=== PATIENT | female | born 1990 | race Caucasian/White ===

== ENCOUNTER → 2021-06-15 | Outpatient (CLI) | payer OTHER ==
[2021-06-15 14:12] LABS: BASO % 0.2 % (0.0-1.0); EOS # 0.1 10^3/uL (0.0-0.5); EOS % 1.3 % (0.0-3.0); HEMATOCRIT 39.6 % (36.0-47.0); HEMOGLOBIN 13.1 g/dl (12.0-15.5); LYMPH # 1.8 10^3/uL (1.5-5.0); LYMPH % 17.5 % (24.0-44.0); MEAN CORPUSCULAR HEMOGLOBIN 28.4 pg (27.0-33.0); MEAN CORPUSCULAR HGB CONC 33.1 g/dl (32.0-36.5); MEAN CORPUSCULAR VOLUME 85.7 fl (80.0-96.0); MONO # 0.5 10^3/uL (0.0-0.8); MONO % 4.5 % (2.0-8.0); NEUTROPHILS # 7.9 10^3/uL (1.5-8.5); PLATELET COUNT, AUTOMATED 216 10^3/uL (150-450); RED BLOOD COUNT 4.62 10^6/uL (4.00-5.40); WHITE BLOOD COUNT 10.4 10^3/uL (4.0-10.0)
[2021-06-15 15:28] LABS: HEPATITIS C VIRUS ABY INDEX < 0.0 INDEX (<0.8); HIV 1&2 SCREEN CENTAUR NEGATIVE (NEGATIVE)
[2021-06-15 15:50] LABS: GC DNA AMPLIFICATION NEGATIVE (NEGATIVE)
== END ==
LOC: M PLALAB 09:22
PROVIDERS: ATTEND Specialist
DX: O30.009 Twin pregnancy, unspecified number of placenta and unspecified number of amniotic sacs, unspecified trimester (principal); Z3A.00 Weeks of gestation of pregnancy not specified

== ENCOUNTER 2021-07-10 12:34 | Outpatient (CLI) | payer OTHER ==
[~2021-07-10] VITALS: Ht 149.9 cm; Wt 95.3 kg
[2021-07-10] MEDS ORDERED: STUACAP PO (12:51)
[2021-07-10] MEDS ORDERED: HOME MED LIST COMPLETE! XX SCH (12:55)
[2021-07-10] MEDS ORDERED: ONDANSETRON 4MG/2ML VIAL IV PRN (13:10)
[2021-07-10] MEDS ORDERED: LR 1,000 ML IV SCH (13:10)
[2021-07-10] MEDS ORDERED: LACTATED RINGER'S 1000 ML IV ONE (13:10)
[2021-07-10 14:18] LABS: HEMOGLOBIN 12.8 g/dl (12.0-15.5); MEAN CORPUSCULAR HEMOGLOBIN 28.8 pg (27.0-33.0); MEAN CORPUSCULAR HGB CONC 33.7 g/dl (32.0-36.5); MEAN CORPUSCULAR VOLUME 85.4 fl (80.0-96.0); PLATELET COUNT, AUTOMATED 209 10^3/uL (150-450); RED BLOOD COUNT 4.45 10^6/uL (4.00-5.40); WHITE BLOOD COUNT 12.6 10^3/uL (4.0-10.0)
[2021-07-10 14:41] VITALS: BP 117/69
[2021-07-10 14:44] LABS: ALBUMIN 2.7 GM/DL (3.2-5.2); ALT/SGPT 23 U/L (12-78); AMYLASE 35 U/L (25-115); BILIRUBIN,TOTAL 0.2 MG/DL (0.2-1.0); BLOOD UREA NITROGEN 5 MG/DL (7-18); CALCIUM LEVEL 8.7 MG/DL (8.5-10.1); CARBON DIOXIDE LEVEL 22 MEQ/L (21-32); CHLORIDE LEVEL 109 MEQ/L (98-107); CREATININE FOR GFR 0.47 MG/DL (0.55-1.30); GLOMERULAR FILTRATION RATE > 60.0 (>60); GLUCOSE, FASTING 93 MG/DL (70-100); LIPASE 71 U/L (73-393); POTASSIUM SERUM 4.1 MEQ/L (3.5-5.1); SODIUM LEVEL 139 MEQ/L (136-145); TOTAL PROTEIN 6.5 GM/DL (6.4-8.2)
[2021-07-10 15:29] LABS: RSV AMPLIFICATION NEGATIVE (NEGATIVE)
[2021-07-10 15:46] VITALS: BP 132/71
== END 2021-07-10 16:00 | disposition home or self-care (01) ==
LOC: M LDO 12:34
PROVIDERS: ATTEND Advanced Practice Midwife
DX: O26.892 Other specified pregnancy related conditions, second trimester (principal); O21.8 Other vomiting complicating pregnancy; R19.7 Diarrhea, unspecified; O34.219 Maternal care for unspecified type scar from previous cesarean delivery; O30.042 Twin pregnancy, dichorionic/diamniotic, second trimester; Z3A.19 19 weeks gestation of pregnancy
CPT/HCPCS: 36415; 76815; 80053; 82150; 83690; 85027; 87631; 96374; G0378; G0463; J2405

== ENCOUNTER → 2021-07-24 | Outpatient (CLI) | payer OTHER ==
[~2021-07-24] MED LIST: FERR325T81 PO; STUACAP PO
== END ==
LOC: M RAD 10:38
PROVIDERS: ATTEND Specialist
DX: O30.009 Twin pregnancy, unspecified number of placenta and unspecified number of amniotic sacs, unspecified trimester (principal); Z3A.21 21 weeks gestation of pregnancy

== ENCOUNTER → 2021-09-12 | Outpatient (CLI) | payer OTHER ==
[~2021-09-12] MED LIST changes: -FERR325T81 PO
== END ==
LOC: M WHC 12:58
PROVIDERS: ATTEND Specialist
DX: O30.042 Twin pregnancy, dichorionic/diamniotic, second trimester (principal); Z3A.28 28 weeks gestation of pregnancy

== ENCOUNTER → 2021-09-18 | Outpatient (CLI) | payer OTHER ==
[2021-09-18 15:13] LABS: HEMATOCRIT 39.8 % (36.0-47.0); HEMOGLOBIN 12.9 g/dl (12.0-15.5); MEAN CORPUSCULAR HEMOGLOBIN 27.2 pg (27.0-33.0); MEAN CORPUSCULAR HGB CONC 32.4 g/dl (32.0-36.5); PLATELET COUNT, AUTOMATED 192 10^3/uL (150-450); RED BLOOD COUNT 4.74 10^6/uL (4.00-5.40); WHITE BLOOD COUNT 10.8 10^3/uL (4.0-10.0)
== END ==
LOC: M PLALAB 11:38
PROVIDERS: ATTEND Specialist
DX: O30.042 Twin pregnancy, dichorionic/diamniotic, second trimester (principal)

== ENCOUNTER 2021-10-03 00:38 | Outpatient (CLI) | payer OTHER ==
[2021-10-03] VITALS (11 sets, daily range): BP systolic 115–166; BP diastolic 57–86
[~2021-10-03] VITALS: Ht 149.9 cm; Wt 100.9 kg
[2021-10-03] MEDS ORDERED: LACTATED RINGER'S 1000 ML IV STA (01:31)
[2021-10-03] MEDS: LR 1,000 ML IV SCH ×2 (02:53→10:46)
[2021-10-03] MEDS ORDERED: BETAMETHASONE SOLUSPAN 6MG/ML 5ML VIAL (J0702 PER 3MG) IM ONE (07:00)
[2021-10-03] MEDS ORDERED: INDOMETHACIN 25 MG CAP PO ONE (08:00)
[2021-10-04] MEDS ORDERED: FERR325T81 PO (08:20)
== END 2021-10-03 13:55 | disposition home or self-care (01) ==
LOC: M LDO 00:38
PROVIDERS: ATTEND Specialist
DX: O60.03 Preterm labor without delivery, third trimester (principal); O26.893 Other specified pregnancy related conditions, third trimester; O26.853 Spotting complicating pregnancy, third trimester; R10.30 Lower abdominal pain, unspecified; O30.043 Twin pregnancy, dichorionic/diamniotic, third trimester; Z3A.31 31 weeks gestation of pregnancy
CPT/HCPCS: 59025; 76816; 76820; 96360; 96361; 96372; G0378; G0463; J0702

== ENCOUNTER 2021-10-04 08:05 | Outpatient (CLI) | payer OTHER ==
[~2021-10-04] VITALS: Ht 149.9 cm; Wt 101.8 kg
[2021-10-04] MEDS ORDERED: BETAMETHASONE SOLUSPAN 6MG/ML 5ML VIAL (J0702 PER 3MG) IM ONE (08:20)
[2021-10-04] MEDS ORDERED: FERR325T81 PO (08:20)
[2021-10-04] MEDS ORDERED: HOME MED LIST COMPLETE! XX SCH (08:20)
[2021-10-04 08:36] VITALS: BP 137/70
[2021-10-04 08:58] VITALS: BP 127/76
== END 2021-10-04 09:00 | disposition home or self-care (01) ==
LOC: M LDO 08:05
PROVIDERS: ATTEND Obstetrics & Gynecology
DX: O60.03 Preterm labor without delivery, third trimester (principal); O30.043 Twin pregnancy, dichorionic/diamniotic, third trimester; O34.219 Maternal care for unspecified type scar from previous cesarean delivery; Z3A.31 31 weeks gestation of pregnancy
CPT/HCPCS: 96372; G0378; J0702

== ENCOUNTER 2021-10-06 17:46 | Outpatient (CLI) | payer OTHER ==
[~2021-10-06] VITALS: Ht 149.9 cm; Wt 102.3 kg
[~2021-10-06 17:46] MED LIST changes: +FERR325T81 PO
[2021-10-06 18:04] VITALS: BP 131/71
== END 2021-10-06 19:06 | disposition home or self-care (01) ==
LOC: M LDO 17:46
PROVIDERS: ATTEND Obstetrics & Gynecology
DX: O60.03 Preterm labor without delivery, third trimester (principal); O26.893 Other specified pregnancy related conditions, third trimester; R10.2 Pelvic and perineal pain; O34.219 Maternal care for unspecified type scar from previous cesarean delivery; O30.043 Twin pregnancy, dichorionic/diamniotic, third trimester; O09.819 Supervision of pregnancy resulting from assisted reproductive technology, unspecified trimester; Z3A.32 32 weeks gestation of pregnancy
CPT/HCPCS: 59025; 76815; G0378; G0463

== ENCOUNTER 2021-10-07 13:44 | Inpatient (IN) | payer OTHER ==
[~2021-10-07] VITALS: Ht 149.9 cm; Wt 101.2 kg
[2021-10-07] VITALS (16 sets, daily range): BP systolic 111–203; BP diastolic 54–112
[2021-10-07] MEDS ORDERED: HOME MED LIST COMPLETE! XX SCH (14:10)
[2021-10-07] MEDS ORDERED: TERBUTALINE SULFATE 1 MG/ML VIAL (J3105) SC STA (15:43)
[2021-10-07 16:15] LABS: HEMATOCRIT 39.3 % (36.0-47.0); HEMOGLOBIN 12.9 g/dl (12.0-15.5); MEAN CORPUSCULAR HEMOGLOBIN 26.4 pg (27.0-33.0); MEAN CORPUSCULAR HGB CONC 32.8 g/dl (32.0-36.5); MEAN CORPUSCULAR VOLUME 80.4 fl (80.0-96.0); PLATELET COUNT, AUTOMATED 205 10^3/uL (150-450); RED BLOOD COUNT 4.89 10^6/uL (4.00-5.40); WHITE BLOOD COUNT 14.3 10^3/uL (4.0-10.0)
[2021-10-07] MEDS: BUTORPHANOL 2 MG/ML INJ (J0595) IV PRN ×3 (16:20→22:41)
[2021-10-07] MEDS: PROMETHAZINE INJ 25 MG/ML VIAL (J2550) IV PRN ×2 (16:20→22:40)
[2021-10-07 16:29] LABS: INR 0.86; PROTHROMBIN TIME 12.1 SECONDS (12.7-14.5)
[2021-10-07 16:30] LABS: PARTIAL THROMBOPLASTIN TIME 27.9 SECONDS (25.9-37.0)
[2021-10-07 16:41] LABS: ALBUMIN 2.4 GM/DL (3.2-5.2); ALT/SGPT 21 U/L (12-78); BILIRUBIN,TOTAL 0.2 MG/DL (0.2-1.0); BLOOD UREA NITROGEN 7 MG/DL (7-18); CALCIUM LEVEL 8.5 MG/DL (8.5-10.1); CARBON DIOXIDE LEVEL 21 MEQ/L (21-32); CHLORIDE LEVEL 106 MEQ/L (98-107); CREATININE FOR GFR 0.56 MG/DL (0.55-1.30); GLOMERULAR FILTRATION RATE > 60.0 (>60); GLUCOSE, FASTING 100 MG/DL (70-100); LDH LACTATE DEHYDROGENASE 158 U/L (84-246); POTASSIUM SERUM 3.8 MEQ/L (3.5-5.1); SODIUM LEVEL 135 MEQ/L (136-145); TOTAL PROTEIN 7.2 GM/DL (6.4-8.2); URIC ACID 2.9 MG/DL (2.6-6.0)
[2021-10-07 17:24] LABS: CREATININE,RANDOM URINE 36.4 MG/DL; TOTAL PROTEIN,RANDOM URINE 11.6 MG/DL (0.0-12.0)
[2021-10-07 20:20] LABS: BILIRUBIN, URINE MANUAL NEGATIVE (NEGATIVE); GLUCOSE, URINE (UA) MANUAL NEGATIVE (NEGATIVE); KETONE, URINE MANUAL NEGATIVE (NEGATIVE); RBC, URINE 0-1 /hpf (0-3); SQUAMOUS EPITHELIAL CELL URINE SMALL AMOUNT /hpf (SMALL AMT); UROBILINOGEN, URINE MANUAL NORMAL (NORMAL)
[2021-10-07 20:21] LABS: BACTERIA, URINE SMALL AMOUNT; HYALINE CAST, URINE NONE SEEN /lpf (0-1)
[2021-10-08] VITALS (21 sets, daily range): BP systolic 113–143; BP diastolic 55–88
[2021-10-08] MEDS: BUTORPHANOL 2 MG/ML INJ (J0595) IV PRN ×6 (02:31→23:19)
[2021-10-08] MEDS ORDERED: TERBUTALINE SULFATE 1 MG/ML VIAL (J3105) SC STA (03:02)
[2021-10-08] MEDS ORDERED: LR 1,000 ML IV SCH (06:50)
[2021-10-08] MEDS: NIFEdipine 10 MG CAP PO SCH ×2 (11:28→18:46)
[2021-10-08] MEDS: PROMETHAZINE INJ 25 MG/ML VIAL (J2550) IV PRN (23:17)
[2021-10-09] VITALS (14 sets, daily range): BP systolic 116–163; BP diastolic 57–106
[2021-10-09] MEDS: BUTORPHANOL 2 MG/ML INJ (J0595) IV PRN ×2 (01:21→03:23)
[2021-10-09] MEDS: NIFEdipine 10 MG CAP PO SCH (03:18)
[2021-10-09] MEDS ORDERED: LACTATED RINGER'S 1000 ML IV STA (04:38)
[2021-10-09] MEDS ORDERED: ceFAZolin SOD 3 GM IV Place Holder IV ONE (04:40)
[2021-10-09] MEDS ORDERED: METHYLERGONOVINE MALEATE 0.2 MG/ML VIAL (J2210) IM ONE (04:55)
[2021-10-09] MEDS ORDERED: CARBOPROST TROMETHAMINE 250 MCG/ML AMP IM ONE (04:55)
[2021-10-09] MEDS ORDERED: TRANEXAMIC ACID INJection 1,000 MG in NS 100 ML IV ONE (04:55)
[2021-10-09] MEDS ORDERED: AZITHROMYCIN INJ 500 MG, VIAL MATE ADAPTER 1 EACH in NS 250 ML IV ONE (05:00)
[2021-10-09] MEDS ORDERED: ceFAZolin SOD 2 GM in IV 1 EA IV ONE (05:00)
[2021-10-09] MEDS ORDERED: ceFAZolin SOD 1 GM in D5W MINI-BAG PLUS 50 ML IV ONE (05:00)
[2021-10-09] MEDS ORDERED: BICITRA 30ML SOLN UDC PO ONE (05:00)
[2021-10-09] MEDS ORDERED: NALOXONE INJ 0.4MG/1ML VIAL (J2310 PER 1MG) IV PRN ×2 (05:15)
[2021-10-09] MEDS ORDERED: METOCLOPRAMIDE INJ 10MG/2ML VIAL (J2765 PER 1) IV PRN (05:15)
[2021-10-09] MEDS ORDERED: NALBUPHINE HCL 10 MG/ML AMP (J2300) IV PRN (05:15)
[2021-10-09] MEDS ORDERED: ONDANSETRON 4MG/2ML VIAL IV PRN ×3 (05:15→07:10)
[2021-10-09] MEDS ORDERED: diphenhydrAMINE 50MG/ML VIAL (J1200) IV PRN (05:15)
[2021-10-09] MEDS ORDERED: ONDANSETRON 4MG/2ML VIAL As Ordered ONE (05:33)
[2021-10-09] MEDS ORDERED: OXYTOCIN INJ 10 UNITS/ML VIAL (J2590) As Ordered ONE (05:33)
[2021-10-09] MEDS ORDERED: MORPHINE PRES-FREE INJ 10 MG/10 ML VIAL (J2274) As Ordered ONE (05:33)
[2021-10-09] MEDS ORDERED: PHENYLephrine 500MCG 5ML (100MCG/ML) SYRINGE As Ordered ONE (05:36)
[2021-10-09 06:14] LABS: CORD GAS ABE V -4.6; CORD GAS HCO3 V 22.9 MEQ/L; CORD GAS O2 SAT V 63.8 %; CORD GAS PCO2 V 51.7 mmHg; CORD GAS PH V 7.265 UNITS; CORD GAS PO2 V 28.3 mmHg; CORD GAS SBC V 19.9 MEQ/L; CORD GAS TCO2 V 24.5 MEQ/L
[2021-10-09 06:16] LABS: CORD GAS ABE A -5.2; CORD GAS HCO3 A 24.7 MEQ/L; CORD GAS O2 SAT A 55.9 %; CORD GAS PCO2 A 67.7 mmHg; CORD GAS PH A 7.18 UNITS; CORD GAS PO2 A 27.9 mmHg; CORD GAS SBC A 19.3 MEQ/L; CORD GAS TCO2 A 26.8 MEQ/L
[2021-10-09 06:18] LABS: CORD GAS ABE A -1.8; CORD GAS HCO3 A 26.9 MEQ/L; CORD GAS PCO2 A 61.4 mmHg; CORD GAS PH A 7.259 UNITS; CORD GAS PO2 A 20.3 mmHg; CORD GAS SBC A 21.5 MEQ/L; CORD GAS TCO2 A 28.8 MEQ/L
[2021-10-09 06:20] LABS: CORD GAS ABE V -2.6; CORD GAS HCO3 V 25.2 MEQ/L; CORD GAS O2 SAT V 67.4 %; CORD GAS PCO2 V 54.9 mmHg; CORD GAS PH V 7.28 UNITS; CORD GAS PO2 V 28.7 mmHg; CORD GAS SBC V 21.5 MEQ/L; CORD GAS TCO2 V 26.9 MEQ/L
[2021-10-09] MEDS ORDERED: OXYTOCIN DRIP 30 UNITS in IV 1 EA IV SCH (06:40)
[2021-10-09] MEDS ORDERED: MORPHINE 4 MG/ML 1ML VIAL/SYRINGE (J2270) IV PRN (06:40)
[2021-10-09] MEDS ORDERED: MEASLES,MUMPS,RUBELLA VACCINE INJ (MMR-II) (90707) SC SCH (06:40)
[2021-10-09] MEDS ORDERED: PERCOCET 5MG/325MG TAB PO PRN ×3 (06:40→07:10)
[2021-10-09] MEDS ORDERED: RHOGAM 300 MCG (1500 IU) INJ (J2790) IM SCH (06:40)
[2021-10-09] MEDS ORDERED: SIMETHICONE 80MG CHEW TAB PO PRN (06:40)
[2021-10-09] MEDS ORDERED: IBUP80TA PO (06:56)
[2021-10-09] MEDS ORDERED: PERCOCET PO (06:56)
[2021-10-09] MEDS ORDERED: COLA100C5 PO (06:56)
[2021-10-09] MEDS ORDERED: fentaNYL 100 MCG/2 ML INJECTION IV PRN (07:10)
[2021-10-09] MEDS ORDERED: LR 1,000 ML IV SCH (07:10)
[2021-10-09] MEDS ORDERED: KETOROLAC 30 MG/ML 1ML VIAL IV PRN ×2 (07:10→07:50)
[2021-10-09] MEDS ORDERED: KETOROLAC 30 MG/ML 1ML VIAL As Ordered ONE (07:22)
[2021-10-09] MEDS: DOCUSATE SODIUM 100MG CAPSULE PO SCH ×3 (09:00→22:05)
[2021-10-09] MEDS: PRENATAL VITAMINS CHEWABLE TABLET PO SCH (09:00)
[2021-10-09] MEDS ORDERED: KETOROLAC 30 MG/ML 1ML VIAL IV SCH (13:00)
[2021-10-09] MEDS: ENOXAPARIN 40MG/0.4ML SYRINGE (J1650 PER 10MG) SC SCH (13:36)
[2021-10-09] MEDS: IBUPROFEN 800 MG TAB PO SCH ×2 (14:45→22:56)
[2021-10-10 02:00] VITALS: BP 102/57
[2021-10-10 06:00] VITALS: BP 130/78
[2021-10-10] MEDS: IBUPROFEN 800 MG TAB PO SCH ×3 (06:46→23:19)
[2021-10-10 07:10] LABS: HEMATOCRIT 34.1 % (36.0-47.0); HEMOGLOBIN 10.9 g/dl (12.0-15.5); MEAN CORPUSCULAR HEMOGLOBIN 26.7 pg (27.0-33.0); MEAN CORPUSCULAR VOLUME 83.4 fl (80.0-96.0); PLATELET COUNT, AUTOMATED 203 10^3/uL (150-450); RED BLOOD COUNT 4.09 10^6/uL (4.00-5.40); WHITE BLOOD COUNT 12.6 10^3/uL (4.0-10.0)
[2021-10-10] MEDS: DOCUSATE SODIUM 100MG CAPSULE PO SCH ×2 (08:00→21:42)
[2021-10-10] MEDS: ENOXAPARIN 40MG/0.4ML SYRINGE (J1650 PER 10MG) SC SCH (08:00)
[2021-10-10] MEDS: PRENATAL VITAMINS CHEWABLE TABLET PO SCH (09:00)
[2021-10-10 10:00] VITALS: BP 124/84
[2021-10-10] MEDS ORDERED: oxyCODONE 5MG TAB PO PRN (13:30)
[2021-10-10 14:00] VITALS: BP 138/82
[2021-10-10] MEDS: ACETAMINOPHEN 500 MG TAB PO PRN ×2 (14:06→21:43)
[2021-10-10 18:00] VITALS: BP 134/75
[2021-10-10 22:15] VITALS: BP 127/70
[2021-10-11 02:45] VITALS: BP 125/62
[2021-10-11 05:26] VITALS: BP 138/75
[2021-10-11] MEDS: IBUPROFEN 800 MG TAB PO SCH (06:51)
[2021-10-11 10:31] VITALS: BP 130/80
[2021-10-11] MEDS: PRENATAL VITAMINS CHEWABLE TABLET PO SCH (10:38)
[2021-10-11] MEDS: DOCUSATE SODIUM 100MG CAPSULE PO SCH (10:38)
[2021-10-11] MEDS: ACETAMINOPHEN 500 MG TAB PO PRN (10:39)
[2021-10-11] MEDS: ENOXAPARIN 40MG/0.4ML SYRINGE (J1650 PER 10MG) SC SCH (10:40)
== END 2021-10-11 13:40 | disposition home or self-care (01) | DRG 773 ==
LOC: M LDO 13:44 → M LDI 10-09 04:26 → M OBS 10-09 07:55
PROVIDERS: ADMIT Obstetrics & Gynecology; ATTEND Obstetrics & Gynecology
PROC: 10D00Z1 Extraction of Products of Conception, Low, Open Approach (ICD-10-PCS; principal; 2021-10-09 05:30)
DX: O60.14X0 Preterm labor third trimester with preterm delivery third trimester, not applicable or unspecified (principal); Z37.2 Twins, both liveborn; O34.211 Maternal care for low transverse scar from previous cesarean delivery; O30.043 Twin pregnancy, dichorionic/diamniotic, third trimester; Z88.0 Allergy status to penicillin; O32.1XX0 Maternal care for breech presentation, not applicable or unspecified; Z3A.32 32 weeks gestation of pregnancy

== ENCOUNTER 2022-12-20 15:22 | Emergency (ER) | payer OTHER ==
[~2022-12-20] VITALS: Ht 149.9 cm; Wt 94.0 kg
[~2022-12-20 15:22] MED LIST changes: +COLA100C5 PO; +IBUP80TA PO; +PERCOCET PO
[2022-12-20 16:48] LABS: URINE PREG TEST NEGATIVE (NEGATIVE)
[2022-12-20 16:55] LABS: BASO # 0.1 10^3/uL (0.0-0.2); BASO % 0.4 % (0.0-1.0); EOS # 0.1 10^3/uL (0.0-0.5); EOS % 0.6 % (0.0-3.0); HEMATOCRIT 43.3 % (36.0-47.0); HEMOGLOBIN 14.3 g/dl (12.0-15.5); LYMPH # 1.4 10^3/uL (1.5-5.0); LYMPH % 10.8 % (24.0-44.0); MEAN CORPUSCULAR HEMOGLOBIN 28.7 pg (27.0-33.0); MEAN CORPUSCULAR VOLUME 86.8 fl (80.0-96.0); MONO # 0.9 10^3/uL (0.0-0.8); MONO % 6.8 % (2.0-8.0); NEUTROPHILS # 10.6 10^3/uL (1.5-8.5); PLATELET COUNT, AUTOMATED 240 10^3/uL (150-450); RED BLOOD COUNT 4.99 10^6/uL (4.00-5.40); WHITE BLOOD COUNT 13.3 10^3/uL (4.0-10.0)
[2022-12-20 17:19] LABS: ALBUMIN 3.9 G/DL (3.2-5.2); ALKALINE PHOSPHATASE 160 U/L (46-116); ALT/SGPT 88 U/L (7.0-40); AST/SGOT 74 U/L (<34); BILIRUBIN,DIRECT 0.3 MG/DL (<0.4); BILIRUBIN,TOTAL 0.9 MG/DL (0.3-1.2); BLOOD UREA NITROGEN 7 MG/DL (9-23); CARBON DIOXIDE LEVEL 29 MMOL/L (20-31); CHLORIDE LEVEL 101 MMOL/L (98-107); CREATININE FOR GFR 0.68 MG/DL (0.55-1.30); GLOMERULAR FILTRATION RATE > 60.0 (>60); GLUCOSE, FASTING 93 MG/DL (60-100); POTASSIUM SERUM 4.4 MMOL/L (3.5-5.1); SODIUM LEVEL 137 MMOL/L (136-145); TOTAL PROTEIN 7.6 G/DL (5.7-8.2)
[2022-12-20] MEDS ORDERED: NS 1,000 ML IV ONE (18:35)
[2022-12-20] MEDS ORDERED: ONDANSETRON 4MG 2ML VIAL IV ONE (18:35)
[2022-12-20] MEDS ORDERED: KETOROLAC 30 MG/ML 1ML VIAL IV ONE (18:35)
[2022-12-20] MEDS ORDERED: ISOVUE-370 76% 100ML VIAL As Ordered ONE (18:36)
[2022-12-20] MEDS ORDERED: cefTRIAXone SOD 1 GM in D5W MINI-BAG PLUS 50 ML IV ONE (21:20)
[2022-12-20] MEDS ORDERED: CIPR500T39 PO (22:16)
[2022-12-20 22:21] VITALS: BP 120/73
[2022-12-20] MEDS ORDERED: ONDA4TAB6 PO (22:31)
== END 2022-12-20 22:38 | disposition home or self-care (01) ==
LOC: M ED 15:22
DX: N10 Acute pyelonephritis (principal); Z88.0 Allergy status to penicillin; Z79.83 Long term (current) use of bisphosphonates; Z79.899 Other long term (current) drug therapy
CPT/HCPCS: 74177; 80048; 80076; 81001; 83605; 84703; 85025; 87040; 87088; 87186; 96365; 96375; 99284; J0696; J1885; J2405; Q9967

== ENCOUNTER 2022-12-23 15:05 | Emergency (ER) | payer OTHER ==
[~2022-12-23] VITALS: Ht 149.9 cm; Wt 92.5 kg
[~2022-12-23 15:05] MED LIST changes: +CIPR500T39 PO; +ONDA4TAB6 PO
[2022-12-23 15:07] VITALS: BP 130/86
[2022-12-23] MEDS ORDERED: EXCETAB32 PO (15:15)
[2022-12-23] MEDS ORDERED: DULO1CAP6 (15:15)
[2022-12-23 18:28] LABS: BASO # 0.1 10^3/uL (0.0-0.2); BASO % 0.6 % (0.0-1.0); EOS # 0.3 10^3/uL (0.0-0.5); EOS % 3.4 % (0.0-3.0); HEMATOCRIT 39.7 % (36.0-47.0); HEMOGLOBIN 13.3 g/dl (12.0-15.5); LYMPH # 2.1 10^3/uL (1.5-5.0); LYMPH % 24.9 % (24.0-44.0); MEAN CORPUSCULAR HEMOGLOBIN 28.5 pg (27.0-33.0); MEAN CORPUSCULAR HGB CONC 33.5 g/dl (32.0-36.5); MEAN CORPUSCULAR VOLUME 85.2 fl (80.0-96.0); MONO # 0.6 10^3/uL (0.0-0.8); MONO % 7.6 % (2.0-8.0); NEUTROPHILS # 5.2 10^3/uL (1.5-8.5); NEUTROPHILS % 62.8 % (36.0-66.0); PLATELET COUNT, AUTOMATED 252 10^3/uL (150-450); RED BLOOD COUNT 4.66 10^6/uL (4.00-5.40); WHITE BLOOD COUNT 8.2 10^3/uL (4.0-10.0)
[2022-12-23 19:00] LABS: HCG, SERUM QUALITATIVE NEGATIVE (NEGATIVE); LIPASE 23 U/L (12-53)
[2022-12-23 19:04] LABS: ALBUMIN 3.5 G/DL (3.2-5.2); ALKALINE PHOSPHATASE 143 U/L (46-116); ALT/SGPT 64 U/L (7.0-40); AST/SGOT 31 U/L (<34); BILIRUBIN,DIRECT 0.1 MG/DL (<0.4); BILIRUBIN,TOTAL 0.3 MG/DL (0.3-1.2); BLOOD UREA NITROGEN < 5 MG/DL (9-23); CALCIUM LEVEL 9.2 MG/DL (8.5-10.1); CARBON DIOXIDE LEVEL 28 MMOL/L (20-31); CHLORIDE LEVEL 103 MMOL/L (98-107); CREATININE FOR GFR 0.74 MG/DL (0.55-1.30); GLOMERULAR FILTRATION RATE > 60.0 (>60); GLUCOSE, FASTING 85 MG/DL (60-100); SODIUM LEVEL 138 MMOL/L (136-145); TOTAL PROTEIN 7.2 G/DL (5.7-8.2)
[2022-12-23] MEDS ORDERED: BACT800T5 PO (19:57)
[2022-12-23] MEDS ORDERED: BACTRIM 160MG/800MG DS TAB PO ONE (20:00)
== END 2022-12-23 20:07 | disposition home or self-care (01) ==
LOC: M ED 15:05
DX: N10 Acute pyelonephritis (principal); Z88.0 Allergy status to penicillin; Z79.83 Long term (current) use of bisphosphonates; Z79.82 Long term (current) use of aspirin; Z79.899 Other long term (current) drug therapy

== ENCOUNTER → 2024-05-26 | Outpatient (REF) | payer OTHER ==
[~2024-05-26] MED LIST changes: +BACT800T5 PO; +DULO1CAP6; +EXCETAB32 PO; +ONDA-282 PO; -ONDA4TAB6 PO
== END ==
LOC: M LAB REF 12:34
PROVIDERS: ATTEND Physician Assistant Medical
DX: R05.9 Cough, unspecified (principal)

== ENCOUNTER → 2024-07-24 | Outpatient (CLI) | payer OTHER ==
[2024-07-24 10:04] LABS: HCG, SERUM QUANTITATIVE < 2.6 MIU/ML (<4.2)
[2024-07-24 10:07] LABS: THYROID STIMULATING HORMONE 1.527 uIU/ML (0.55-4.78)
[2024-07-24 10:08] LABS: FOLLICLE STIMULATING HORMONE 7.6 mIU/ML; LUTEINIZING HORMONE 3.6 mIU/ML; PROGESTERONE 0.69 NG/ML
[2024-07-24 10:09] LABS: ESTRADIOL 34.5 PG/ML
== END ==
LOC: M PLALAB 08:38
PROVIDERS: ATTEND Obstetrics & Gynecology Reproductive Endocrinology
DX: Z31.83 Encounter for assisted reproductive fertility procedure cycle (principal)

== ENCOUNTER → 2024-07-24 | Outpatient (CLI) | payer OTHER | LOC: M WHC 08:54 | PROVIDERS: ATTEND Obstetrics & Gynecology Reproductive Endocrinology | DX: Z31.83 Encounter for assisted reproductive fertility procedure cycle (principal); N88.8 Other specified noninflammatory disorders of cervix uteri; R93.89 Abnormal findings on diagnostic imaging of other specified body structures ==

== ENCOUNTER → 2024-08-13 | Outpatient (CLI) | payer OTHER ==
[2024-08-13 12:55] LABS: ESTRADIOL 99.7 PG/ML; PROGESTERONE 1.49 NG/ML
== END ==
LOC: M PLALAB 09:52
PROVIDERS: ATTEND Obstetrics & Gynecology Reproductive Endocrinology
DX: Z31.49 Encounter for other procreative investigation and testing (principal)